=== PATIENT | male | born 1980 | race Caucasian/White ===

== ENCOUNTER 2023-02-09 16:02 | Emergency (ER) | payer MEDICAID ==
[2023-02-09 16:19] VITALS: BP_SYST 134
--- NOTE | 2023-02-09 16:35 | NUR ---
Patient to ER bed H1 to gown for evaluation. Side rails up.
--- NOTE | 2023-02-09 16:38 | NUR ---
ER at bedside examining patient.
[2023-02-09] MEDS ORDERED: LIDOCAINE 1% 10 MG/ML, 20 ML MDV INJ ONE (17:15)
[2023-02-09] MEDS ORDERED: BACITRACIN 1 GM OINT TP ONE (17:20)
--- NOTE | 2023-02-09 17:30 | NUR ---
WOUND CARE COMPLETE. DRSG BY MERGERS AND ACQUISITIONS ASSOCIATE. ACI GIVEN BY DR. RINALDI. PT GAB WELL. IN GOOD SPIRITS
--- NOTE | 2023-02-09 17:31 | NUR ---
Patient given written and verbal discharge instructions and verbalizes understanding. ER MD discussed with patient the results and treatment provided. Patient in stable condition. ID arm band removed. Rx of given. Patient educated on pain management and to follow up with PMD. Pain Scale 0. Opportunity for questions provided and answered. Medication side effect fact sheet provided.
[2023-02-09] MEDS ORDERED: CEPH-548 PO (17:33)
[2023-02-09] MEDS ORDERED: NAPR-1172 PO (17:33)
--- NOTE | 2023-02-09 17:35 | NUR ---
Note undone in EDM - 02/09/23 at 1932 by DORITA Patient given written and verbal discharge instructions and verbalizes understanding. ER MD DR RINALDI discussed with patient the results and treatment provided. Patient in stable condition. ID arm band removed. IV catheter removed intact and dressing applied, no active bleeding. Rx of NAPROXEN / CEPHALEXIN given. Patient educated on pain management and to follow up with PMD. Pain Scale 0/10. Opportunity for questions provided and answered. Medication side effect fact sheet provided.
--- NOTE | 2023-02-10 08:32 | NUR ---
Executive Vice President And Chief Operating Officer re: homelessness Telephone call made to the patient to inquire about his need for resources and assistance with housing. Per patient, he is not homeless, but would like to review some material on housing and fdc services. He requested that I place the resources in the mail to his PO Box. I confirmed the PO Box and placed housing information in the mail to him this morning. Confirmed mailing address: [address]; [facility] [address]
== END 2023-02-09 17:30 | disposition home or self-care (01) ==
LOC: SED 16:02
DX: L02.511 Cutaneous abscess of right hand (principal); M79.644 Pain in right finger(s); Z79.899 Other long term (current) drug therapy
CPT/HCPCS: 99282